=== PATIENT | male | born 1965 | race Caucasian/White ===

== ENCOUNTER 2024-02-18 16:44 | Emergency (ER) | payer OTHER ==
[~2024-02-18] VITALS: Ht 162.6 cm; Wt 54.0 kg
[~2024-02-18 16:44] MED LIST: DOCU250C14 MT
[2024-02-18 17:08] VITALS: O2SAT 98
[2024-02-18] MEDS ORDERED: METH-653 MT (19:26)
[2024-02-18] MEDS ORDERED: LIDO700A30 TP (19:26)
[2024-02-18 19:44] VITALS: BP 136/72; PULSE 76; RESP 16; TEMP 36.83628; O2SAT 98
== END 2024-02-18 19:45 | disposition home or self-care (01) ==
LOC: ER 16:44
DX: S33.5XXA Sprain of ligaments of lumbar spine, initial encounter (principal); X58.XXXA Exposure to other specified factors, initial encounter; Y93.89 Activity, other specified; Y92.89 Other specified places as the place of occurrence of the external cause; Y99.8 Other external cause status
CPT/HCPCS: 99283